=== PATIENT | male | born 1945 | race Caucasian/White ===

== ENCOUNTER 2018-04-10 04:18 | Inpatient (IN) | payer OTHER ==
[~2018-04-10] VITALS: Ht 193 cm; Wt 107.6 kg
[2018-04-10 04:57] LABS: APPEARANCE CLEAR ((CLEAR)); BILIRUBIN MODERATE; BLOOD NEGATIVE; COLOR AMBER ((YELLOW)); GLUCOSE (STRIP) 50; KETONES 20; LEUKOCYTES NEGATIVE; NITRITE NEGATIVE; PROTEIN (STRIP) 100; SPECIFIC GRAVITY 1.029 (1.000-1.030)
[2018-04-10 05:01] LABS: ICTOTEST ND
[2018-04-10 05:01] LABS: BASOPHIL (%) 0.3 % (0-1); EOSINOPHIL (%) 2.8 % (0-5); EOSINOPHIL COUNT 0.1 K/uL (0-0.3); HEMATOCRIT 39.3 % (38.0-50.0); HEMOGLOBIN 13.9 G/DL (12.5-16.6); IMMATURE GRANULOCYTE (%) 1.1 % (0.0-0.7); LYMPHOCYTE (%) 7.5 % (15-42); LYMPHOCYTE COUNT 0.3 K/uL (1.0-2.8); MCH 29.1 PG (29.0-34.0); MCHC 35.4 G/DL (30.0-36.0); MCV 82.4 FL (86-99); MONOCYTE (%) 2.8 % (3-12); MONOCYTE COUNT 0.1 K/uL (0-0.8); NEUTROPHIL (%) 85.5 % (45-76); NEUTROPHIL COUNT 3.1 K/uL (1.8-6.4); PLATELET COUNT 112 K/uL (156-360); RBC DIS.WIDTH-CV 13.5 % (11.8-14.6); RBC DIS.WIDTH-SD 40.7 % (39-53); RED BLOOD COUNT 4.77 M/uL (4.00-5.50); WHITE BLOOD COUNT 3.6 K/uL (4.1-10.2)
[2018-04-10 05:04] LABS: BACTERIA RARE /HPF; EPITHELIAL CELLS RARE /HPF; MUCUS TRACE /LPF; RED BLOOD CELLS 0-5 /HPF (0-5); UCUL ADDED? YES
[2018-04-10 05:09] LABS: ALBUMIN 3.3 g/dL (3.2-4.8)
[2018-04-10 05:10] LABS: CHLORIDE 96 mEq/L (99-109); POTASSIUM 4.2 mEq/L (3.7-5.4); SODIUM 131 mEq/L (136-147)
[2018-04-10 05:12] LABS: GLUCOSE 102 mg/dL (70-99); TOTAL PROTEIN 5.7 g/dL (6.4-8.3)
[2018-04-10 05:14] LABS: TOTAL BILIRUBIN 3.8 mg/dL (0.0-1.0)
[2018-04-10 05:15] LABS: ALKALINE PHOSPHATASE 254 IU/L (3-129)
[2018-04-10 05:16] LABS: CREATININE 1.2 mg/dL (0.6-1.3); GFR ESTIMATE (CALCULATED) > 59 mL/min/ (58.99-99999)
[2018-04-10 05:17] LABS: AST (GOT) 84 IU/L (2-34); UREA NITROGEN (BUN) 19 mg/dL (9-23)
[2018-04-10 05:19] LABS: ALT (GPT) 125 IU/L (3-49); LIPASE 31 U/L (1.0-51.0)
[2018-04-10 09:00] VITALS: BP 116/80
[2018-04-10 11:15] VITALS: BP 116/58
[2018-04-10] MEDS ORDERED: MELOXICAM15 MG PO (15:37)
[2018-04-10] MEDS ORDERED: LISINOPRIL30 MG PO (15:39)
[2018-04-10] MEDS ORDERED: TRAMADOL HCL50 MG PO (15:53)
[2018-04-10] MEDS ORDERED: BACTRIM,SEPT1 TABLET PO (15:53)
[2018-04-10 16:00] VITALS: BP 111/59
[2018-04-10 18:56] VITALS: BP 119/63
[2018-04-10 22:58] VITALS: BP 115/59
[2018-04-11] VITALS (7 sets, daily range): BP systolic 116–159; BP diastolic 65–79
[2018-04-11 05:59] LABS: INTER. NORMALIZED RATIO 1.1
[2018-04-11 06:00] LABS: ALBUMIN 2.8 G/DL (3.2-4.8); ALKALINE PHOSPHATASE 201 IU/L (3-129); ALT (GPT) 76 IU/L (3-49); AST (GOT) 49 IU/L (2-34); CHLORIDE 102 MEQ/L (99-109); GFR ESTIMATE (CALCULATED) > 59 mL/min/ (58.99-99999); GLUCOSE 88 mg/dL (70-99); POTASSIUM 3.8 MEQ/L (3.7-5.4); SODIUM 133 MEQ/L (136-147); TOTAL BILIRUBIN 3.2 MG/DL (0.0-1.0); TOTAL PROTEIN 4.8 G/DL (6.4-8.3); UREA NITROGEN (BUN) 14 mg/dL (9-23)
[2018-04-11 06:02] LABS: HEMATOCRIT 35.5 % (38.0-50.0); MCH 28.2 PG (29.0-34.0); MCHC 33.5 G/DL (30.0-36.0); MCV 84.1 FL (86-99); PLATELET COUNT 86 K/uL (156-360); RBC DIS.WIDTH-CV 14.2 % (11.8-14.6); RBC DIS.WIDTH-SD 43.4 % (39-53); RED BLOOD COUNT 4.22 M/uL (4.00-5.50); WHITE BLOOD COUNT 2.5 K/uL (4.1-10.2)
[2018-04-11 06:20] LABS: HEMOGLOBIN 11.9 G/DL (12.5-16.6)
[2018-04-11 08:17] LABS: FERRITIN 490 NG/ML (22-322)
[2018-04-11 10:24] LABS: HEPATITIS B SURFACE ANTIGEN Nonreactive; HEPATITIS C ANTIBODY Nonreactive
[2018-04-11 10:25] LABS: ANTI-HEPATITIS A VIRUS (IGM) Nonreactive
[2018-04-11 10:26] LABS: ANTI-HEPATITIS B CORE (IGM) Nonreactive
[2018-04-12 06:02] LABS: BASOPHIL (%) 0.6 % (0-1); EOSINOPHIL (%) 0.9 % (0-5); HEMATOCRIT 35.4 % (38.0-50.0); HEMOGLOBIN 12.2 G/DL (12.5-16.6); IMMATURE GRANULOCYTE (%) 1.2 % (0.0-0.7); LYMPHOCYTE (%) 28.8 % (15-42); MCH 28.5 PG (29.0-34.0); MCHC 34.5 G/DL (30.0-36.0); MCV 82.7 FL (86-99); MONOCYTE (%) 6.6 % (3-12); MONOCYTE COUNT 0.2 K/uL (0-0.8); NEUTROPHIL (%) 61.9 % (45-76); NEUTROPHIL COUNT 2.1 K/uL (1.8-6.4); PLATELET COUNT 88 K/uL (156-360); RBC DIS.WIDTH-CV 14.6 % (11.8-14.6); RBC DIS.WIDTH-SD 43.9 % (39-53); RED BLOOD COUNT 4.28 M/uL (4.00-5.50); WHITE BLOOD COUNT 3.3 K/uL (4.1-10.2)
[2018-04-12 06:55] LABS: ALBUMIN 2.6 G/DL (3.2-4.8); ALT (GPT) 85 IU/L (3-49); CHLORIDE 103 MEQ/L (99-109); CREATININE 0.8 MG/DL (0.6-1.3); GFR ESTIMATE (CALCULATED) > 59 mL/min/ (58.99-99999); POTASSIUM 4.3 MEQ/L (3.7-5.4); SODIUM 135 MEQ/L (136-147); TOTAL BILIRUBIN 2.6 MG/DL (0.0-1.0); TOTAL PROTEIN 4.7 G/DL (6.4-8.3); UREA NITROGEN (BUN) 11 mg/dL (9-23)
[2018-04-12 07:13] LABS: ALKALINE PHOSPHATASE 269 IU/L (3-129); AST (GOT) 77 IU/L (2-34); GLUCOSE 113 mg/dL (70-99)
[2018-04-12 07:20] VITALS: BP 142/76
[2018-04-12 11:25] VITALS: BP 140/80
[2018-04-12 19:48] VITALS: BP 137/77
[2018-04-12 23:42] VITALS: BP 141/74
[2018-04-13] VITALS (7 sets, daily range): BP systolic 145–161; BP diastolic 76–83
[2018-04-13 06:15] LABS: PTT 26.9 SEC (25-37)
[2018-04-13 06:21] LABS: ALBUMIN 2.8 G/DL (3.2-4.8); ALKALINE PHOSPHATASE 333 IU/L (3-129); ALT (GPT) 166 IU/L (3-49); AST (GOT) 167 IU/L (2-34); CHLORIDE 103 MEQ/L (99-109); CREATININE 0.9 MG/DL (0.6-1.3); GFR ESTIMATE (CALCULATED) > 59 mL/min/ (58.99-99999); GLUCOSE 92 mg/dL (70-99); SODIUM 135 MEQ/L (136-147); TOTAL BILIRUBIN 1.9 MG/DL (0.0-1.0); TOTAL PROTEIN 4.8 G/DL (6.4-8.3); UREA NITROGEN (BUN) 10 mg/dL (9-23)
[2018-04-13 06:37] LABS: HEMATOCRIT 33.2 % (38.0-50.0); HEMOGLOBIN 11.4 G/DL (12.5-16.6); MCH 28.4 PG (29.0-34.0); MCHC 34.3 G/DL (30.0-36.0); MCV 82.8 FL (86-99); PLATELET COUNT 102 K/uL (156-360); RBC DIS.WIDTH-CV 14.7 % (11.8-14.6); RBC DIS.WIDTH-SD 45.1 % (39-53); RED BLOOD COUNT 4.01 M/uL (4.00-5.50); WHITE BLOOD COUNT 3.7 K/uL (4.1-10.2)
[2018-04-13 07:05] LABS: ANISOCYTOSIS 1+; BASOPHIL (%) 0.5 % (0-1); EOSINOPHIL (%) 0.5 % (0-5); IMMATURE GRANULOCYTE (%) 0.8 % (0.0-0.7); LYMPHOCYTE (%) 36.9 % (15-42); LYMPHOCYTE COUNT 1.4 K/uL (1.0-2.8); MONOCYTE (%) 9.6 % (3-12); MONOCYTE COUNT 0.4 K/uL (0-0.8); NEUTROPHIL (%) 51.7 % (45-76); NEUTROPHIL COUNT 1.9 K/uL (1.8-6.4)
[2018-04-13 12:20] LABS: ANTI-SMOOTH MUSCLE (Actin)+ <20 U (<20)
[2018-04-14 00:05] VITALS: BP 150/76
[2018-04-14 03:38] VITALS: BP 148/76
[2018-04-14 06:53] LABS: HEMATOCRIT 36.4 % (38.0-50.0); HEMOGLOBIN 12.5 G/DL (12.5-16.6); MCH 28.3 PG (29.0-34.0); MCHC 34.3 G/DL (30.0-36.0); MCV 82.4 FL (86-99); RBC DIS.WIDTH-CV 14.9 % (11.8-14.6); RBC DIS.WIDTH-SD 45.2 % (39-53); RED BLOOD COUNT 4.42 M/uL (4.00-5.50); WHITE BLOOD COUNT 6.1 K/uL (4.1-10.2)
[2018-04-14 07:01] LABS: PLATELET COUNT 152 K/uL (156-360)
[2018-04-14 07:28] LABS: ALBUMIN 3.3 G/DL (3.2-4.8); ALKALINE PHOSPHATASE 409 IU/L (3-129); ALT (GPT) 158 IU/L (3-49); AST (GOT) 97 IU/L (2-34); CHLORIDE 102 MEQ/L (99-109); CREATININE 0.8 MG/DL (0.6-1.3); GFR ESTIMATE (CALCULATED) > 59 mL/min/ (58.99-99999); GLUCOSE 92 mg/dL (70-99); POTASSIUM 4.2 MEQ/L (3.7-5.4); SODIUM 136 MEQ/L (136-147); TOTAL BILIRUBIN 1.6 MG/DL (0.0-1.0); TOTAL PROTEIN 5.5 G/DL (6.4-8.3); UREA NITROGEN (BUN) 11 mg/dL (9-23)
[2018-04-14 07:30] VITALS: BP 164/79
[2018-04-15 11:11] LABS: MITOCHONDRIAL (M2) ANTIBODIES+ <=20.0 U (<=20.0)
[2018-04-26 15:28] LABS: ALPHA-1-ANTITRYPSIN+ 204 (H) mg/dL
== END 2018-04-14 12:34 | disposition home or self-care (01) | DRG 872 ==
LOC: EME 04:18 → ENRESERV 07:49 → EDOF 08:03 → 5EAST 08:03 → ENRESERV 08:16 → 5EAST 08:58 → ENPENDDIS 04-14 → 5EAST 04-14 12:34
PROVIDERS: Emergency Medicine; Hospitalist; Internal Medicine Gastroenterology; Physician Assistant
PROC: 0FB13ZX Excision of Right Lobe Liver, Percutaneous Approach, Diagnostic (ICD-10-PCS; principal; 2018-04-13)
DX: A41.9 Sepsis, unspecified organism (principal); N30.00 Acute cystitis without hematuria; E87.2 Acidosis; K76.6 Portal hypertension; D69.6 Thrombocytopenia, unspecified; I10 Essential (primary) hypertension; M06.9 Rheumatoid arthritis, unspecified; E86.0 Dehydration; K44.9 Diaphragmatic hernia without obstruction or gangrene; K73.9 Chronic hepatitis, unspecified; M19.90 Unspecified osteoarthritis, unspecified site; K59.00 Constipation, unspecified; Z79.899 Other long term (current) drug therapy; Z82.49 Family history of ischemic heart disease and other diseases of the circulatory system
CPT/HCPCS: 71046; 74177; 74183; 77012; 80048; 80053; 80074; 81003; 82103 90; 82390; 82728; 83516 90; 83605; 83690; 85025; 85027; 85610; 85730; 86038; 86256 90; 87040; 87086 GA; 88307; 88313; 99281; 99285; J1644; J2270; J2405; J2543; J3010; J3370; J7030; J7050